=== PATIENT | male | born 2000 | race Caucasian/White ===

== ENCOUNTER 2021-10-19 15:08 | Emergency (ER) | payer OTHER ==
[~2021-10-19] VITALS: Ht 180.3 cm; Wt 131.1 kg
[2021-10-19 15:55] VITALS: BP 179/93
--- NOTE | 2021-10-19 16:00 | NUR ---
BIB SELF C/O 6/10 LEFT LOWER LEG PAIN X 5 DAYS.
[2021-10-19] MEDS ORDERED: IBUP-2213 PO (17:23)
--- NOTE | 2021-10-19 17:35 | NUR ---
Patient discharged with v/s stable. Written and verbal after care instructions FOR MUSCULOSKELETAL PAIN given and explained. Patient alert, oriented and verbalized understanding of instructions. Ambulatory with steady gait. All questions addressed prior to discharge. ID band removed. Patient advised to follow up with PMD. Rx of IBURPROFEN given. Opportunity to ask questions provided and answered.
--- NOTE | 2021-10-19 17:36 | NUR ---
The patient's care was reviewed and supervised by Irvin Hills RN.
== END 2021-10-19 17:35 | disposition home or self-care (01) ==
LOC: MED 15:08
DX: M79.662 Pain in left lower leg (principal)
CPT/HCPCS: 73590; 99283